=== PATIENT | male | born 1990 | race Caucasian/White ===

== ENCOUNTER 2016-06-25 12:48 | Emergency (ER) | payer SELFPAY ==
[~2016-06-25] VITALS: Ht 180.3 cm; Wt 77.1 kg
--- OUTSIDE RECORDS SUMMARY | 2016-06-25 12:56 | XMS REPORT | Continuity of Care Document ---
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 If you do not see the information that you expected, contact Release of Information in the Health Information Management department at [phone] for further assistance in locating additional records.[facility] Active Allergies and Adverse Reactions Allergen Noted Date Severity Reactions Comments Pcn 11/07/2010 UNKNOWN Current Medications Prescription Sig. Disp. Refills Start End Date Status Date ibuprofen (MOTRIN) 600 mg Take 1 Tab by mouth every 30 Tab 0 11/09/19 Active PO tablet 6 hours as needed for 11 Pain. sertraline (ZOLOFT) 100 Take 100 mg by mouth Active mg PO tablet daily. lisdexamfetamine(+) Take 50 mg by mouth every Active (VYVANSE) 50 mg PO morning. capsule LORATADINE (CLARITIN PO) Take by mouth. Active Active Problems Not on file Social History Tobacco Use Types Packs/Day Years Used Date Never Smoker Smokeless Tobacco: Never Used Alcohol Use Drinks/Week oz/Week Comments No Last Filed Vital Signs Vital Sign Reading Time Taken Blood Pressure 135/72 11/07/2010 9:39 PM CDT Pulse 75 11/07/2010 9:39 PM CDT Temperature 37 C (98.6 F) 11/07/2010 9:39 PM CDT Respiratory Rate - - Height - - Weight - - Body Mass Index - - Oxygen Saturation 98% 11/07/2010 9:39 PM CDT Plan of Care Health Maintenance Due Date Last Done Comments Physical (Comprehensive) 09/12/1999 Exam Pertussis Vaccine 09/12/2003 Tetanus Vaccine 2009 Influenza Vaccine 02/17/2015 Results from Last 3 Months Not on file
--- NOTE | 2016-06-25 14:31 | ED Neurological Problem ---
General Chief Complaint: General Problems/Pain Stated Complaint: SEIZURES Nursing Triage Note: PT REPORTS THAT HE HAS BEEN HAVING SEIZURES. HE STATES HIS LAST ONE WAS THIS AM. HE DENIES SEIZURE HX. PT IS A&O X 4 AT THIS TIME. Nursing Sepsis Screen: No Definite Risk Source: patient, other (girlfriend) Exam Limitations: no limitations History of Present Illness Time seen by provider: 14:31 Initial Comments 25 yo male patient presents to the ED with c/o having seizures the last 3 days. Patient states his last seizure was this AM. Girlfriend reports patient sat staring off and not responding to her. Patient then reportedly became unresponsive. Denies Shaking, vomiting, bowel incontinence, bladder incontinence. Denies a previous h/o seizures. States he was seen at [facility] yesterday and given a Rx. Denies picking the Rx up. Reports having headaches intermittently for 2 months with photophobia, sound sensitivities, and nausea. Patient reports he is very sleepy after he wakes up. Patient initially denies head trauma, but now states he was kicked in the head by a bull 2 months ago. Girlfriend did not time the seizures. Timing/Duration: episodic, other (2 days) Associated Symptoms: No confusion, No fatigue, No fever/chills, No insomnia, loss of consciousnessNo muscle spasms, No numbness in legs/feet, No paresthesia , No ringing in ears, seizures (possible seizures.) sleepyNo slurred speech, No tingling in legs/feet, No trouble walking, No vision changes, No weakness Allergies and Home Medications Allergies Coded Allergies: Penicillins (Unverified Allergy, Mild, 06/19/10) Constitutional: No chills, No diaphoresis, No dizziness, No fever, No malaise, No weakness Eyes: Denies Blindness, Denies Drainage, Denies Decreased Acuity, Denies Inflammation, Denies Pain, Photophobia Other ((+) scatomas) Ears, Nose, Mouth, Throat: denies ear pain, denies ear discharge, denies nose pain, denies nose discharge, denies epistaxis, denies mouth pain, denies loose teeth, denies throat pain Respiratory: no symptoms reported Cardiovascular: no symptoms reported Gastrointestinal: No abdominal pain, No constipation, No diarrhea, nauseaNo vomiting Genitourinary: no symptoms reported Musculoskeletal: no symptoms reported Skin: no symptoms reported Psychiatric/Neurological: See HPIDenies Cognitive Dysfunction (denies current cognitive dysfunction.), HeadacheDenies Numbness, Denies Tingling, Denies Unable to Move Lower Ext, Denies Unable to Move Upper Ext, Denies Weakness All Other Systems Reviewed Negative Unless Noted: Yes (Negative excepted noted.) Past Onlkfsr-Wppjvu-Ivcdak Hx Patient Social History Alcohol Use: Denies Use Recreational Drug Use: No Smoking Status: Current Everyday Smoker Type Used: Cigarettes, Smokeless Tobacco Recent Foreign Travel: No Contact w/Someone Who Travel: No Recent Infectious Disease Expo: No Recent Hopitalizations: No Physical Abuse Screen: No Sexual Abuse: No Surgeries HX Surgeries: Yes Surgeries: Tonsillectomy Respiratory Hx Respiratory Disorders: No Cardiovascular Hx Cardiac Disorders: Yes ("HOLE IN HEART") Neurological Hx Neurological Disorders: Yes Neurological Disorders: Headaches /Migraines Genitourinary Hx Genitourinary Disorders: No Gastrointestinal Hx Gastrointestinal Disorders: No Musculoskeletal Hx Musculoskeletal Disorders: No Endocrine Hx Endocrine Disorders: No Reviewed Nursing Assessment Reviewed/Agree w Nursing PMH: Yes Family Medical History Significant Family History: No Pertinent Family Hx Physical Exam Vital Signs Capillary Refill : Less Than 3 Seconds General Appearance: WD/WN no apparent distress HEENT: PERRL/EOMI normal ENT inspection TMs normal pharynx normal photophobia Neck: non-tender full range of motion supple normal inspection Respiratory: lungs clear normal breath sounds no respiratory distress Cardiovascular: normal peripheral pulses regular rate, rhythm no murmur Gastrointestinal: normal bowel sounds non tender softNo distended Back: normal inspection Extremities: normal inspection no pedal edema normal capillary refill Neurologic/Psychiatric: ice cream scooper II-XII nml as tested no motor/sensory deficits alert normal mood/affect oriented x 3 other (patient is able to correctly state the year, day of the week, city, county, state, and location. Unable to state the month or day of the month (states "I'm not good with months and days.")) Crainal Nerves: normal hearing normal speech PERRLNo abnormal eye position, No abnormal pupil position, No facial asymmetry, No facial droop, No facial paresthesias, No facial weakness, No gaze palsy Coordination/Gait: normal finger to nose normal gait negative Romberg's sign Motor/Sensory: no motor deficit no sensory deficit no pronator drift Skin: normal color warm/dry Progress/Results/Core Measures Results/Orders Lab Results Laboratory Tests Test 06/25/16 14:27 Range/Units Acetaminophen Level < 10 L 10-30 UG/ML Alanine Aminotransferase (ALT/SGPT) 14 0-55 U/L Albumin 3.9 3.2-4.5 G/DL Alkaline Phosphatase 91 40-136 U/L Anion Gap 10 5-14 MMOL/L Aspartate Amino Transf (AST/SGOT) 22 5-34 U/L BUN/Creatinine Ratio 11 Basophils # (Auto) 0.0 0.0-0.1 10^3/uL Basophils (%) (Auto) 0 0-10 % Blood Urea Nitrogen 9 7-18 MG/DL Calcium Level 8.9 8.5-10.1 MG/DL Carbon Dioxide Level 23 21-32 MMOL/L Chloride Level 104 98-107 MMOL/L Creatinine 0.84 0.60-1.30 MG/DL Eosinophils # (Auto) 0.2 0.0-0.3 10^3/uL Eosinophils (%) (Auto) 2 0-10 % Estimat Glomerular Filtration Rate > 60 Glucose Level 101 70-105 MG/DL Hematocrit 40 40-54 % Hemoglobin 13.7 13.3-17.7 G/DL Lymphocytes # (Auto) 1.6 1.0-4.0 X 10^3 Lymphocytes (%) (Auto) 20 12-44 % Mean Corpuscular Hemoglobin 30 25-34 PG Mean Corpuscular Hemoglobin Concent 35 32-36 G/DL Mean Corpuscular Volume 87 80-99 FL Mean Platelet Volume 10.9 H 7.4-10.4 FL Monocytes # (Auto) 0.8 0.0-1.0 X 10^3 Monocytes (%) (Auto) 10 0-12 % Neutrophils # (Auto) 5.5 1.8-7.8 X 10^3 Neutrophils (%) (Auto) 68 42-75 % Platelet Count 171 130-400 10^3/uL Potassium Level 3.9 3.6-5.0 MMOL/L Red Blood Count 4.55 4.35-5.85 10^6/uL Red Cell Distribution Width 12.7 10.0-14.5 % Salicylates Level < 5.0 L 5.0-20.0 MG/DL Serum Alcohol < 10 <10 MG/DL Sodium Level 137 135-145 MMOL/L TSH [place] Testing 1.44 0.35-4.94 UIU/ML Total Bilirubin 0.6 0.1-1.0 MG/DL Total Protein 6.9 6.4-8.2 G/DL Ur Tricyclic Antidepressants Screen NEGATIVE NEGATIVE Urine Amphetamines Screen NEGATIVE NEGATIVE Urine Bacteria NEGATIVE /HPF Urine Barbiturates Screen NEGATIVE NEGATIVE Urine Benzodiazepines Screen NEGATIVE NEGATIVE Urine Bilirubin NEGATIVE NEGATIVE Urine Cannabinoids Screen NEGATIVE NEGATIVE Urine Casts NONE /LPF Urine Clarity CLEAR Urine Cocaine Screen NEGATIVE NEGATIVE Urine Color YELLOW Urine Crystals NONE /LPF Urine Culture Indicated NO Urine Glucose (UA) NEGATIVE NEGATIVE Urine Ketones NEGATIVE NEGATIVE Urine Leukocyte Esterase NEGATIVE NEGATIVE Urine Methadone Screen NEGATIVE NEGATIVE Urine Methamphetamines Screen NEGATIVE NEGATIVE Urine Mucus NEGATIVE /LPF Urine Nitrite NEGATIVE NEGATIVE Urine Opiates Screen NEGATIVE NEGATIVE Urine Oxycodone Screen NEGATIVE NEGATIVE Urine Phencyclidine Screen NEGATIVE NEGATIVE Urine Propoxyphene Screen NEGATIVE NEGATIVE Urine Protein NEGATIVE NEGATIVE Urine RBC NONE /HPF Urine RBC (Auto) NEGATIVE NEGATIVE Urine Specific [place] 1.005 L 1.016-1.022 Urine Squamous Epithelial Cells 0-2 /HPF Urine Urobilinogen 1 NORMAL MG/DL Urine WBC NONE /HPF Urine pH 6 5-9 White Blood Count 8.1 4.3-11.0 10^3/uL My Orders Orders-ELIJAH MICHAEL Acetaminophen (06/25/16 14:13) Alcohol (06/25/16 14:13) Cbc With Automated Diff (06/25/16 14:13) Comprehensive Metabolic Panel (06/25/16 14:13) Drug Screen Stat (Urine) (06/25/16 14:13) Salicylate (06/25/16 14:13) Thyroid Analyzer (06/25/16 14:13) Ua Culture If Indicated (06/25/16 14:13) Ondansetron Oral Dissolve Tab (Zofran (06/25/16 15:46) Cyclobenzaprine Tablet (Flexeril Tablet) (06/25/16 15:46) Ibuprofen Tablet (Motrin Tablet) (06/25/16 15:46) Vital Signs/I&O Blood Pressure Mean: 80 Departure Communication Progress Notes All [facility] records reviewed. CT Head, CMP, CBC, PT/INR, ETOH, Drug screen negative per records. No seizure activity in the ED. ED visit uneventful. All laboratory findings from this ED visit discussed with the patient. [facility]. Patient instructed to begin the medications prescribed to him at [facility]. All return precautions were discussed with the patient as described in the discharge instructions of this report. Patient voices understanding and agrees with the treatment plan. Impression Impression: Primary Impression: Migraine headache Qualified Code: G43.909 - Migraine, unspecified, not intractable, without status migrainosus Additional Impression: Seizure-like activity Disposition: HOME, SELF-CARE Condition: Improved Departure-Patient Inst. Decision time for Depature: 15:37 Referrals: NO,LOCAL PHYSICIAN (PCP/Family) Primary Care Physician Patient Instructions: Migraine Headache (DC), Seizures, Adult (DC), Syncope ( Fainting) (DC) Add. Discharge Instructions: All discharge instructions reviewed with patient and/or family. Voiced understanding. TAKE DILANTIN AND LORAZEPAM PRESCRIBED BY [facility] ED YESTERDAY. Follow-up with [facility] as instructed by [facility] ED yesterday for recheck and to establish care. Drink plenty of fluids. No activities that may result in head injury. Absolutely NO RIDING BULLS, OPERATING MACHINERY, OR DRIVING A CAR/TRUCK UNTIL RELEASED BY YOUR FAMILY PRACTITIONER. Return to the emergency department for worsened headache, dizziness, changes in vision, changes in behavior, slurred speech, numbness, weakness, or any other concerns. Work/School Note: Local [employer] Staff Listing ELIJAH MICHAEL Jun 25, 2016 14:31
[2016-06-25 14:36] LABS: BASOPHILS % (AUTO) 0 % (0-10); EOSINOPHILS # (AUTO) 0.2 10^3/uL (0.0-0.3); EOSINOPHILS % (AUTO) 2 % (0-10); LYMPHOCYTES # (AUTO) 1.6 X 10^3 (1.0-4.0); LYMPHOCYTES % (AUTO) 20 % (12-44); MEAN CORPUSCULAR HEMOGLOBIN 30 PG (25-34); MEAN CORPUSCULAR HGB CONC 35 G/DL (32-36); MEAN CORPUSCULAR VOLUME 87 FL (80-99); MEAN PLATELET VOLUME 10.9 FL (7.4-10.4); MONOCYTES # (AUTO) 0.8 X 10^3 (0.0-1.0); MONOCYTES % (AUTO) 10 % (0-12); NEUTROPHILS # (AUTO) 5.5 X 10^3 (1.8-7.8); NEUTROPHILS % (AUTO) 68 % (42-75); PLATELET COUNT 171 10^3/uL (130-400); RED BLOOD COUNT 4.55 10^6/uL (4.35-5.85); RED CELL DISTRIBUTION WIDTH 12.7 % (10.0-14.5); WHITE BLOOD COUNT 8.1 10^3/uL (4.3-11.0)
[2016-06-25 14:37] LABS: BILIRUBIN,URINE NEGATIVE (NEGATIVE); KETONES,URINE NEGATIVE (NEGATIVE); LEUKOCYTE ESTERASE ,URINE NEGATIVE (NEGATIVE); NITRITE,URINE NEGATIVE (NEGATIVE); PH,URINE 6 (5-9); PROTEIN,URINE NEGATIVE (NEGATIVE); UROBILINOGEN,URINE 1 MG/DL (NORMAL)
[2016-06-25 14:43] LABS: SQUAMOUS EPITHELIAL CELL,UR 0-2 /HPF
[2016-06-25 14:58] LABS: ACETAMINOPHEN < 10 UG/ML (10-30); ALANINE AMINOTRANSFERASE 14 U/L (0-55); ALBUMIN 3.9 G/DL (3.2-4.5); ALCOHOL < 10 MG/DL (<10); ANION GAP 10 MMOL/L (5-14); ASPARTATE AMINO TRANSFERASE 22 U/L (5-34); BILIRUBIN,TOTAL 0.6 MG/DL (0.1-1.0); BLOOD UREA NITROGEN 9 MG/DL (7-18); BUN/CREATININE RATIO 11; CALCIUM 8.9 MG/DL (8.5-10.1); CARBON DIOXIDE 23 MMOL/L (21-32); CHLORIDE 104 MMOL/L (98-107); CREATININE SERUM 0.84 MG/DL (0.60-1.30); GFR ESTIMATED > 60; GLUCOSE 101 MG/DL (70-105); POTASSIUM 3.9 MMOL/L (3.6-5.0); SALICYLATE < 5.0 MG/DL (5.0-20.0); SODIUM 137 MMOL/L (135-145); TOTAL PROTEIN 6.9 G/DL (6.4-8.2)
[2016-06-25] MEDS ORDERED: IBUPROFEN 800 MG (MOTRIN) TAB PO STA (15:46)
[2016-06-25] MEDS ORDERED: CYCLOBENZAPRINE 10 MG (FLEXERIL) TAB PO STA (15:46)
[2016-06-25] MEDS ORDERED: ONDANSETRON 4 MG (ZOFRAN) ORAL DISSOLVE TAB SL STA (15:46)
[2016-06-25 16:05] VITALS: BP 103/69
== END 2016-06-25 16:05 | disposition home or self-care (01) ==
LOC: EDUNIT# 12:48 → ER 12:50
DX: G43.909 Migraine, unspecified, not intractable, without status migrainosus (principal); R56.9 Unspecified convulsions; F17.210 Nicotine dependence, cigarettes, uncomplicated
CPT/HCPCS: 36415; 80053; 80306; 80320; 80329; 81000; 84443; 85025; 99283